=== PATIENT | female | born 1965 | race Caucasian/White ===

== ENCOUNTER 2021-04-20 07:05 | Outpatient (CLI) | payer BC | END 2021-04-20 07:06 | disposition home or self-care (01) | LOC: CSHLAB 07:05 | PROVIDERS: ATTEND Obstetrics & Gynecology | DX: Z01.812 Encounter for preprocedural laboratory examination (principal); Z20.822 Contact with and (suspected) exposure to COVID-19; N84.0 Polyp of corpus uteri | CPT/HCPCS: 84703; 85027; 86850; 86900; 86901; U0003; U0005 ==

== ENCOUNTER 2021-04-23 10:51 | Day surgery (SDC) | payer BC ==
[2021-04-15 09:46] VITALS: BMI 44.6
[2021-04-20 09:02] LABS: Hemoglobin 14.7 g/dL (12.0-15.5); Mean Corpuscular HGB CONC 32.5 g/dL (32.0-36.0); Mean Corpuscular Hemoglobin 31.3 pg (27.0-33.0); Mean Corpuscular Volume 96.4 fl (81.6-98.3); Mean Platelet Volume 9.8 fl (7.4-10.4); Platelet Count 415 10x3/uL (150-450); RBC Distribution Width 13.9 % (11.5-14.5); Red Blood Cell (RBC) Count 4.69 10x6/uL (3.90-5.03); White Blood Cell (WBC) Count 9.4 10x3/uL (3.5-10.5)
[2021-04-20 09:10] LABS: BHCG - Serum Negative (NEGATIVE); Pregs Control Background? CLEAR/WHITE (CLR/WHITE); Pregs Control Bar Appear? YES (CONTROL BAR)
[2021-04-20 20:42] LABS: SARS-CoV-2 PCR by NAA Not Detected (NotDetected)
[2021-04-23] MEDS ORDERED: Lidocaine 1% MPF 2 ML VIAL ONE (11:14)
[2021-04-23] MEDS ORDERED: Fentanyl 100 MCG/2 ML VIAL ONE (12:35)
[2021-04-23] MEDS ORDERED: Lidocaine 1% PF 5 ML VIAL ONE (12:35)
[2021-04-23] MEDS ORDERED: Dexamethasone 4 mg/ml Vial ONE (12:35)
[2021-04-23] MEDS ORDERED: PROPOFOL 20 ML ONE (12:35)
[2021-04-23] MEDS ORDERED: Ondansetron PF 4 MG/2 ML Vial ONE (12:35)
[2021-04-23] MEDS ORDERED: ceFAZolin 2 GM/Dextrose 50 ML IVPB ONE (12:48)
== END 2021-04-23 14:55 | disposition home or self-care (01) ==
LOC: CSHSDC 10:51
PROVIDERS: ATTEND Obstetrics & Gynecology
PROC: 0UB98ZX Excision of Uterus, Via Natural or Artificial Opening Endoscopic, Diagnostic (ICD-10-PCS; principal; 2021-04-23)
DX: N84.0 Polyp of corpus uteri (principal); E78.5 Hyperlipidemia, unspecified; J30.9 Allergic rhinitis, unspecified; M06.9 Rheumatoid arthritis, unspecified; Z79.899 Other long term (current) drug therapy; Z88.2 Allergy status to sulfonamides; Z91.013 Allergy to seafood; Z20.822 Contact with and (suspected) exposure to COVID-19
CPT/HCPCS: 84703; 85027; 86850; 86900; 86901; 88305; J0690; J1100; J2405; J2704; J3010; U0003; U0005